=== PATIENT | male | born 1970 | race Caucasian/White ===

== ENCOUNTER 2021-11-03 05:36 | Outpatient (CLI) | payer BC ==
[~2021-11-03] VITALS: Ht 182.9 cm; Wt 88.5 kg
== END 2021-11-03 14:37 | disposition home or self-care (01) ==
LOC: PREOP 05:36
PROVIDERS: ATTEND Surgery
DX: Z01.818 Encounter for other preprocedural examination (principal)

== ENCOUNTER 2021-11-16 06:53 | Day surgery (SDC) | payer BC ==
[2021-11-16] VITALS (8 sets, daily range): BP systolic 90–107; BP diastolic 51–63
[~2021-11-16] VITALS: Ht 182.9 cm; Wt 88.5 kg
[2021-11-16] MEDS ORDERED: LACTATED RINGERS 1,000 ML IV STA (07:00)
[2021-11-16] MEDS ORDERED: PROPOFOL INJECTION 50 ML IV ONE (07:09)
[2021-11-16] MEDS ORDERED: MIDAZOLAM 2 MG/2 ML (VERSED) VIAL ONE (07:09)
--- NOTE | 2021-11-16 08:35 | Progress Note-Post Operative ---
Post-Operative Progess Note Surgeon (s)/Room Service Food Server (s) Surgeon JOE HERNANDEZ DO Room Service Food Server: na Pre-Operative Diagnosis screening colonoscopy Post-Operative Diagnosis normal colon Procedure & Operative Findings Date of Procedure 11/16/21 Procedure Performed/Findings colonoscopy Anesthesia Type per night shift supervisor Estimated Blood Loss Estimated blood loss (mL): none Specimens/Packing Specimens Removed na JOE HERNANDEZ DO Nov 16, 2021 08:35
--- NOTE | 2021-11-16 08:36 | Discharge Inst-Simple/Standard ---
Discharge Inst-Standard Patient Instructions/Follow Up Plan of Care/Instructions/FU: 10 years Higinio any issues before that be seen at that time. Activity as Tolerated: Yes Discharge Diet: Regular Diet JOE HERNANDEZ DO Nov 16, 2021 08:36
--- NOTE | 2021-11-16 11:35 | OPERATIVE REPORT ---
DATE OF SERVICE: 11/16/2021 PREOPERATIVE DIAGNOSIS: Screening colonoscopy. POSTOPERATIVE DIAGNOSIS: Normal colon. PROCEDURE: Colonoscopy. SURGEON: Joe Sylvester DO ANESTHESIA: Per WARPER FIXER. ESTIMATED BLOOD LOSS: None. COMPLICATIONS: None. INDICATIONS: The patient is a 51-year-old male needing screening colonoscopy. He understands risks and benefits of procedure and wished to proceed. Consent was signed in the chart. DESCRIPTION OF PROCEDURE: The patient was taken to the endoscopy suite, placed in left lateral recumbent position. Timeout was performed. Digital rectal exam was performed. No palpable polyps, masses or ulcerations. Scope was inserted in the rectum and advanced all the way to cecum with minimal difficulty. Prep was adequate. Scope was slowly retracted back. No polyps, masses or ulcerations within the cecum, ascending, transverse, descending and sigmoid colon. Once in the rectum, scope was retroflexed. No other pathology. Scope was returned to its normal position, slowly withdrawn until completely removed. The patient tolerated procedure well without any complications, taken to recovery room in stable condition. RECOMMENDATIONS: The patient will need repeat colonoscopy in 10 years. Any issues before that be seen at that time. CC: Dr. Holm - requested, unable to deliver. Job ID: [id number] DocumentID: [id number] Dictated Date: 11/16/2021 08:38:02 Game Author Date: 11/16/2021 11:34:41 Dictated By: JOE SYLVESTER DO
--- NOTE | 2021-11-16 12:15 | Anesthesia-General Post-Op ---
MAC Patient Condition Mental Status/LOC: Same as Preop Cardiovascular: Satisfactory Nausea/Vomiting: Absent Respiratory: Satisfactory Pain: Controlled Complications: Absent Post Op Complications Complications None Follow Up Care/Instructions Patient Instructions None needed. Anesthesiology Discharge Order Discharge Order Patient is doing well, no complaints, stable vital signs, no apparent adverse anesthesia problems. No complications reported per nursing. EVAN SWIFT CRNA Nov 16, 2021 12:15
== END 2021-11-16 09:28 | disposition home or self-care (01) ==
LOC: ENDO 06:53
PROVIDERS: ATTEND Surgery
DX: Z12.11 Encounter for screening for malignant neoplasm of colon (principal)